=== PATIENT | female | born 1950 | race African-American/Black ===

== ENCOUNTER 2018-03-20 06:54 | Inpatient (IN) | payer MEDICAID, OTHER ==
[2018-03-20] MEDS ORDERED: PROPOFOL 200 MG/20 ML VIAL IV ONE (08:48)
[2018-03-20] MEDS ORDERED: HYDROmorphone HCL/PF 2 MG/ML VIAL ONE ×2 (08:48)
[2018-03-20] MEDS ORDERED: LORazepam 2 MG/ML VIAL ONE (08:48)
[2018-03-20] MEDS ORDERED: ePHEDrine SULFATE 50 MG/1 ML IVP ONE (08:48)
[2018-03-20] MEDS ORDERED: ROCURONIUM BROMIDE 10 MG/ML 5ML VIAL ONE (08:48)
[2018-03-20] MEDS ORDERED: LIDOCAINE HCL 2% PF 100MG/5ML VIAL IJ ONE (08:48)
[2018-03-20] MEDS ORDERED: DEXAMETHASONE SOD PHOS 4 MG/ML VIAL ONE (08:48)
[2018-03-20] MEDS ORDERED: fentaNYL CITRATE/PF 100 MCG/ 2ML AMP ONE (08:48)
[2018-03-20] MEDS ORDERED: FENTANYL 250MCG/5ML VIAL ONE (08:48)
[2018-03-20] MEDS ORDERED: LACTATED RINGERS 1,000 ML IV.SOLN IV ONE ×2 (08:48)
[2018-03-20] MEDS ORDERED: ceFAZolin SODIUM 1 GM VIAL ONE (08:48)
[2018-03-20] MEDS ORDERED: ONDANSETRON HCL/PF 4 MG/ 2ML VIAL ONE (08:48)
[2018-03-20] MEDS ORDERED: MIDAZOLAM HCL 2 MG/2 ML VIAL ONE (08:48)
[2018-03-20] MEDS ORDERED: PHENYLEPHRINE HCL 10 MG/1 ML ONE (08:48)
[2018-03-20] MEDS ORDERED: BACITRACIN 50,000 UNIT VIAL ONE (08:48)
[2018-03-20] MEDS ORDERED: SEVOFLURANE 250 ML LIQUID IH ONE (08:48)
[2018-03-20] MEDS ORDERED: THROMBIN (RECOMBINANT) 20,000 UNIT VIAL TP ONE (08:48)
[2018-03-20] MEDS ORDERED: DIAZEPAM 5 MG TABLET PO PRN (13:07)
[2018-03-20] MEDS ORDERED: diphenhydrAMINE HCL 50 MG/ML VIAL IVP PRN (13:07)
[2018-03-20] MEDS ORDERED: HYDROmorphone HCL 2 MG TABLET PO PRN (13:07)
[2018-03-20] MEDS ORDERED: ONDANSETRON HCL/PF 4 MG/ 2ML VIAL IVP PRN (13:07)
[2018-03-20] MEDS ORDERED: fentaNYL CITRATE/PF 100 MCG/ 2ML AMP IVP PRN ×2 (13:07)
[2018-03-20] MEDS ORDERED: PROMETHAZINE HCL 25 MG in 0.9 % SODIUM CHLORIDE 50 ML IV PRN (13:07)
[2018-03-20] MEDS ORDERED: MORPHINE SULFATE 4 MG/ML PREFILLED SYR IVP PRN (13:07)
[2018-03-20] MEDS ORDERED: LEVALBUTEROL HCL 1.25 MG/3 ML AMPUL.NEB NEB PRN (13:07)
[2018-03-20] MEDS ORDERED: ACETAMINOPHEN 500 MG TABLET PO PRN (13:07)
[2018-03-20] MEDS ORDERED: oxyCODONE HCL 5 MG TABLET PO PRN (13:07)
[2018-03-20] MEDS ORDERED: oxyCODONE/ACETAMINOPHEN 5/325 TABLET PO PRN (13:07)
[2018-03-20] MEDS ORDERED: diphenhydrAMINE HCL 25 MG TABLET PO PRN (13:07)
[2018-03-20] MEDS ORDERED: 0.9 % SODIUM CHLORIDE 1,000 ML IV SCH (13:15)
[2018-03-20] MEDS ORDERED: IPRATROPIUM/ALBUTEROL SULFATE 3 ML AMPUL.NEB NEB PRN (13:35)
--- NOTE | 2018-03-20 14:14 | History and Physical Report ---
History of Present Illnes - History of Present Illness Reason for Visit: Cervical Disc Replacement of C3-C4 and C4-C5 History of Present Illness: Patient is a 67-year-old woman who has a chronic history of neck and back pain. She has had injections to the SI joints which provided 50% pain relief. She has also received physical therapy in the past. It was decided by patient and surgeon to proceed with surgical intervention and Cervical Disc Replacement of C3-4 and C4-5 was completed today. Procedure went well- patient was said to be very anxious in PACU and received ativan 1 mg and helped patient to relax. Patient will me admitted to assist with pain control, IVF until patient is able to eat and drink, neurovascular checks, and will involve PT to assist patient with getting up and walking. - Past Medical History Cardiac: HTN. 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 denies: CVA, TIA Gastrointestinal: GERD (occasionally). denies: Irritable bowel disease Heme/Onc: Anemia NOS, Cancer (hx of breast cancer) Hepatobiliary: denies: Hep A/B/C Psych: denies: Anxiety, Depression Musculoskeletal: Chronic low back pain, Other (chronic neck pain) Rheumatologic: denies: Rheumatoid arthritis Infectious Disease: Other (hx of measles). denies: HIV ENT: denies: Sinusitis Renal/: denies: Acute renal failure Endocrine: obesity. denies: Diabetes, Hypothyroidism Dermatology: denies: Cellulitis - Past Surgical History Past Surgical History: Breast Biopsy, Tubal Ligation, Other (breast surgeries x 5) - Past Social History Smoke: 1 pack per day, Quit (3 months ago) Alcohol: None Drugs: Marijuana (daily) Lives: With Family Domestic Violence: Negative - Health Maintenance Health Maintenance: Mammogram. denies: Influenza Vaccine, Pneumococcal Vaccine Influenza Vaccine: No, Patient Refused Pneumonia Vaccine: No (pt refused) Resuscitation Status: Full Code - Unable to Obtain History Unable to Obtain: No Review of Systems - Review of Systems Constitutional: negative: Fever, Chills Eyes: negative: vision change, redness ENT: negative: Ear Pain, Throat Pain Respiratory: negative: Cough, Shortness of Breath Cardiovascular: negative: Chest Pain, Palpitations Gastrointestinal: negative: Nausea, Vomiting Genitourinary: negative: Dysuria Musculoskeletal: Neck Pain (c/o discomfort to neck s/p surgery (c-collar on)) Skin: negative: Rash Neurological: negative: Incoordination - Medications/Allergies Allergies/Adverse Reactions: Allergies Allergy/AdvReac Type Severity Reaction Status Date / Time No Known Allergies Allergy Unverified 03/20/18 13:26 Home Medications: Home Medications Aspirin [Aspirin EC] 81 mg PO DAILY 03/20/18 Ipratropium/Albuterol Sulfate [Combivent Respimat] 2 puff IH BID 03/20/18 Lidocaine [Lidocaine Pain Relief] 1 each TP DAILY 03/20/18 Lisinopril [Prinivil] 20 mg PO DAILY 03/20/18 Naproxen [Naprosyn] 500 mg PO BID 03/20/18 Tramadol HCl [Ultram] 50 mg PO Q6H PRN 03/20/18 Triamcinolone Acetonide 0.1% [Kenalog] 1 appl TP BID 03/20/18 amLODIPine BESYLATE [Norvasc] 10 mg PO 0900 03/20/18 Current Inpatient Medications: Current Inpatient Medications Acetaminophen (Tylenol Extra Strength) 500 mg PO Q4 PRN PRN Reason: for mild pain 1-4/fever Albuterol/Ipratropium (Duoneb) 3 ml NEB Q4 PRN PRN Reason: Wheezing/Shortness of breath Amlodipine Besylate (Norvasc) 10 mg PO DAILY LUIS Diazepam (Valium) 5 mg PO Q8H PRN PRN Reason: Anxiety/muscle spasm Stop: 03/21/18 13:06 Diphenhydramine HCl (Benadryl) 25 mg IVP Q6H PRN PRN Reason: Sleeping and Itching Stop: 03/21/18 13:06 Diphenhydramine HCl (Benadryl) 25 mg PO Q4 PRN PRN Reason: Itching or Pruritis Stop: 03/21/18 13:06 Fentanyl Citrate (Duragesic) 50 mcg IVP Q2H PRN PRN Reason: Moderate pain 5-7 Stop: 03/21/18 13:06 Fentanyl Citrate (Duragesic) 100 mcg IVP Q2H PRN PRN Reason: For Severe Pain 8-10 Stop: 03/21/18 13:06 Heparin Sodium (Porcine) (Heparin) 5,000 unit SQ Q12 LUIS Hydromorphone HCl (Dilaudid) 4 mg PO Q4H PRN PRN Reason: Severe Pain 8-10 Stop: 03/21/18 13:06 Sodium Chloride (Normal Saline) 1,000 mls @ 75 mls/hr IV Q13H LUIS Promethazine HCl 25 mg/ Sodium (Chloride) 51 mls @ 200 mls/hr IV Q6 PRN PRN Reason: Nausea / Vomiting Stop: 03/24/18 13:06 Ketorolac Tromethamine (Toradol) 15 mg IVP Q6 PRN PRN Reason: For Mild Pain 1-4 Stop: 03/21/18 13:06 Levalbuterol HCl (Xopenex) 1.25 mg NEB Q4 PRN PRN Reason: SOA, Dyspnea, or Wheezing Stop: 03/24/18 13:06 Lisinopril (Prinivil) 5 mg PO DAILY LUIS Morphine Sulfate () 4 mg IVP Q2 PRN PRN Reason: For Severe Pain 8-10 Stop: 03/21/18 13:06 Ondansetron HCl (Zofran 4 Mg/2 Ml) 4 mg IVP Q6H PRN PRN Reason: Nausea / Vomiting Stop: 03/24/18 13:06 Oxycodone HCl (Percolone) 10 mg PO Q4 PRN PRN Reason: For Moderate Pain 5-7 Stop: 03/21/18 13:06 Oxycodone/Acetaminophen (Percocet 5-325 Mg Tablet) 2 each PO Q4 PRN PRN Reason: Moderate pain 5-7 Stop: 03/21/18 13:06 Exam - Exam Vital Signs: Vital Signs (72 hours) 03/20/18 03/20/18 13:06 13:46 Temperature 97.4 F L 97.4 F L Pulse Rate [ 104 H Right] Respiratory 18 Rate Blood Pressure 137/79 [Right Arm] O2 Sat by Pulse 94 94 Oximetry General: Alert, Oriented to Person, Oriented to Place, Cooperative, Moderate distress (Still drowsy from Ativan- but arouses easily) HEENT: Atraumatic, PERRLA, Mouth Mucous membr. moist/[place], Nose Mucous membr. moist/[place] Neck: Other (patient has on soft c-collar for support and protection). No: Stridor, Normal Range of Motion Lungs: Clear to auscultation, Normal air movement. No: Respiratory Distress, Wheezes Cardiovascular: Regular rate, Normal S1, Normal S2 Abdomen: Normal bowel sounds, Soft, No tenderness Integumentary: [place], Warm, Dry Extremities: No edema, Normal pulses, No tenderness/swelling Neurological: Strength Equal Bilat (equal bilaterally slightly weak), Sensation intact. No: Normal gait (ambulated to the bathroom with assist) Psych/Mental Status: Other (Patient still drowsy from Ativan- easily arousable) Assessment/Plan - Assessment/Plan (1) S/P cervical disc replacement Status: Acute Current Visit: Yes Assessment: S/p Cervical disc replacement of C3-4 and C4-5, soft c-collar on for support and protection, neurovasculars intact Plan: Plan is for IV pain control and eventually transition to oral pain meds, IVF for hydration until patient tolerates diet, have patient up and ambulating & SCDs while in bed to prevent DVTs along with heparin, and Incentive spirometer to prevent respiratory illness. (2) Asthma Status: Acute Current Visit: Yes Qualifiers: Asthma severity: mild Asthma persistence: intermittent Asthma complication type: uncomplicated Qualified Code(s): J45.20 - Mild intermittent asthma, uncomplicated Assessment: Lungs are clear- will continue to monitor pulse ox Plan: Will use duoneb nebulizer as needed, will implement incentive spirometer, and monitor pulse ox (3) Hypertension Status: Acute Current Visit: Yes Qualifiers: Hypertension type: essential hypertension Qualified Code(s): I10 - Essential (primary) hypertension Plan: Stable with home medication- will continue (4) Degenerative disc disease, lumbar Status: Acute Current Visit: Yes Plan: Pain medication for cervical surgery should help with lumbar discomfort (5) Cervical stenosis of spine Status: Acute Current Visit: Yes Plan: S/P cervical disc replacement of C3-4 and C4-5 VTE Assessment - RISK FACTOR SCORE VTE RISK FACTOR SCORES: AGE OVER 60 YEARS, MAJOR SURGERY/ANESTHESIA TIME > 1 HOUR (Heparin 5000 units subq q 12hours, frequent ambulation, and sCDS)
[2018-03-20] MEDS: KETOROLAC TROMETHAMINE 30 MG/1ML VIAL IVP PRN ×2 (15:28→23:12)
[2018-03-20 16:17] VITALS: BMI 19.3
[2018-03-20] MEDS: HEPARIN SODIUM 5000 UNIT/1 ML SQ SCH (21:40)
[2018-03-21 07:41] LABS: eGFR (Non-African) > 60
[2018-03-21 07:49] LABS: BASOPHILS % 0.5 (0.0-1.5); EOSINOPHILS % 0.7 % (0.0-6.8); MONOCYTES % 8.6 % (0.0-11.0)
[2018-03-21 07:50] LABS: NEUTROPHILS # 10.7 # k/uL (1.4-7.7)
[2018-03-21] MEDS: HEPARIN SODIUM 5000 UNIT/1 ML SQ SCH (08:41)
[2018-03-21] MEDS ORDERED: amLODIPine BESYLATE 5 MG TABLET PO SCH (09:00)
[2018-03-21] MEDS ORDERED: LISINOPRIL 5 MG TABLET PO SCH (09:00)
--- NOTE | 2018-03-21 09:09 | Discharge Summary ---
Discharge Summary - Discharge Sumary History of Present Illness: Patient is a 67-year-old woman who has a chronic history of neck and back pain. She has had injections to the SI joints which provided 50% pain relief. She has also received physical therapy in the past. It was decided by patient and surgeon to proceed with surgical intervention and Cervical Disc Replacement of C3-4 and C4-5 was completed today. Procedure went well- patient was said to be very anxious in PACU and received ativan 1 mg and helped patient to relax. Patient will me admitted to assist with pain control, IVF until patient is able to eat and drink, neurovascular checks, and will involve PT to assist patient with getting up and walking. Condition at Discharge: Stable Home Medications: Ambulatory Orders Medication Instructions Recorded Aspirin [Aspirin EC] 81 mg PO DAILY 03/20/18 Ipratropium/Albuterol Sulfate 2 puff IH BID 03/20/18 [Combivent Respimat] Lidocaine [Lidocaine Pain Relief] 1 each TP DAILY 03/20/18 Lisinopril [Prinivil] 20 mg PO DAILY 03/20/18 Naproxen [Naprosyn] 500 mg PO BID 03/20/18 Tramadol HCl [Ultram] 50 mg PO Q6H PRN 03/20/18 Triamcinolone Acetonide 0.1% 1 appl TP BID 03/20/18 [Kenalog] amLODIPine BESYLATE [Norvasc] 10 mg PO 0900 03/20/18 Oxycodone HCl/Acetaminophen 1 - 2 tab PO Q4H PRN #84 tablet 03/21/18 [Percocet 7.5/325] Consultations this Visit: Other (Keep follow up appointment s/p surgery) Procedures this Visit: Other (S/P Cervical Total Disc Replacement) Allergies/Adverse Reactions: Allergies Allergy/AdvReac Type Severity Reaction Status Date / Time No Known Allergies Allergy Unverified 03/20/18 13:26 Patient Problems: Current Active Problems Problem Status Onset Asthma Acute Cervical stenosis of spine Acute Degenerative disc disease, lumbar Acute Hypertension Acute S/P cervical disc replacement Acute Discharge Summary: Patient was admitted for Cervical Total Disc Replacement (2 levels)- she did very well throughout the night. Staff state that patient has been up in chair, ambulating in the hallway, and using incentive spirometer. She has had minimal discomfort. Patient was up this morning in chair eating breakfast independently and tolerating regular diet. She is insistent on going home today. She states that she has plenty of help at home- she has been walking independently in the hallway, pain is very minimal to the neck (sore)- c collar is on, she denies any nausea or vomiting. Neurovasculars are intact of all 4 extremities. Patient will be discharged to home with prescription for percocet for severe pain- pt states that she will use her Tramadol first. She was instructed to wear c collar when she is outside of the home. Patient will be given discharge information for Cervical Total Disc Replacement. Dr. Thompson has been in to see patient this morning- patient is very pleased after surgery- she has no more pain, no radiating pain, no numbness or tingling to extremities. Hospital Course: Patient has been up walking independently. Tolerating regular diet with no nausea or vomiting. Has not required pain medication in over 8 hours - Final Diagnosis (1) S/P cervical disc replacement Problems: Incision is without redness- c collar is on and patient educated on wearing it when she leaves the home Right or Left: Right (2) Asthma Problems: Stable on home medications Right or Left: Right (3) Hypertension Problems: Stable on home medications Right or Left: Right (4) Degenerative disc disease, lumbar Problems: Stable on home medications Right or Left: Right (5) Cervical stenosis of spine Problems: S/P cervical total disc replacement Right or Left: Right
[2018-03-21 10:22] VITALS: BP 158/78
== END 2018-03-21 10:30 | disposition home or self-care (01) | DRG 518 ==
LOC: OPSURG 06:54 → OBSVTOIN 12:57 → INTOOBSV 12:57 → SOUTH 12:57
PROVIDERS: ADMIT Nurse Practitioner Family; ATTEND Nurse Practitioner Family
DX: M48.02 Spinal stenosis, cervical region (principal); M50.21 Other cervical disc displacement, high cervical region; M50.221 Other cervical disc displacement at C4-C5 level; J45.20 Mild intermittent asthma, uncomplicated
CPT/HCPCS: 22856; 22858; 80048; 85025; 99231; 99238; J0690; J1100; J1170; J1644; J1885; J2001; J2060; J2250; J2370; J2405; J2704; J3010; A4550; C1889; G0378; J3490; J7030; J7120; L0120

== ENCOUNTER 2018-05-23 05:08 | Day surgery (SDC) | payer MEDICARE, OTHER ==
[2018-05-23] MEDS ORDERED: LEVALBUTEROL NEB 1.25 MG/3 ML VIAL.NEB IH ONE (05:20)
[2018-05-23] MEDS ORDERED: LACTATED RINGERS 1,000 ML IV ONE (05:20)
[2018-05-23] MEDS ORDERED: FAMOTIDINE 20 MG/2 ML VIAL ONE ×2 (05:21→08:48)
[2018-05-23] MEDS ORDERED: ONDANSETRON HCL/PF 4 MG/ 2ML VIAL ONE (08:48)
[2018-05-23] MEDS ORDERED: LACTATED RINGERS 1,000 ML IV.SOLN IV ONE (08:48)
[2018-05-23] MEDS ORDERED: MIDAZOLAM HCL 2 MG/2 ML VIAL ONE (08:48)
[2018-05-23] MEDS ORDERED: VASOPRESSIN 20 UNIT/1 ML ONE (08:48)
[2018-05-23] MEDS ORDERED: HYDROmorphone HCL/PF 2 MG/ML VIAL ONE (08:48)
[2018-05-23] MEDS ORDERED: LIDOCAINE HCL 2% PF 100MG/5ML VIAL IJ ONE (08:48)
[2018-05-23] MEDS ORDERED: DEXAMETHASONE SODIUM PHOSPHATE 10 MG/ML VIAL ONE (08:48)
[2018-05-23] MEDS ORDERED: PROPOFOL 200 MG/20 ML VIAL IV ONE (08:48)
[2018-05-23] MEDS ORDERED: ROCURONIUM BROMIDE 10 MG/ML 5ML VIAL ONE (08:48)
[2018-05-23] MEDS ORDERED: THROMBIN (BOVINE) 20,000 UNIT VIAL TP ONE (08:48)
[2018-05-23] MEDS ORDERED: 0.9 % SODIUM CHLORIDE 100 ML IV.SOLN IV ONE (08:48)
[2018-05-23] MEDS ORDERED: PHENYLEPHRINE HCL 10 MG/1 ML ONE (08:48)
[2018-05-23] MEDS ORDERED: NORMAL SALINE 1,000 ML IV.SOLN IV ONE (08:48)
[2018-05-23] MEDS ORDERED: SEVOFLURANE 250 ML LIQUID IH ONE (08:48)
[2018-05-23] MEDS ORDERED: SUGAMMADEX SODIUM 200 MG/2 ML VIAL IV ONE (08:48)
[2018-05-23] MEDS ORDERED: BUPIV. HCL 0.25% (2.5MG/ML)/EPI. (1:200,000) PF 30 ML VIAL IJ ONE (08:48)
[2018-05-23] MEDS ORDERED: GLYCOPYRROLATE 0.2 MG/1 ML 1 ML ONE (08:48)
[2018-05-23] MEDS ORDERED: ceFAZolin SODIUM 1 GM VIAL ONE (08:48)
--- NOTE | 2018-05-23 13:49 | Operative Note ---
OPERATIVE REPORT PATIENT NAME: CINTHIA VAZQUEZ DATE OF : 1950 MR#: PROCEDURE DATE: 05/23/2018 PREOPERATIVE DIAGNOSIS: Right-sided herniated nucleus pulposus, L4-5, with bilateral foraminal stenosis. POSTOPERATIVE DIAGNOSIS: Right-sided herniated nucleus pulposus, L4-5, with bilateral foraminal stenosis. PROCEDURES PERFORMED: 1. Right side laminotomy, L4, with bilateral decompression, bilateral foraminotomies, and discectomy. 2. Intraoperative fluoroscopy and interpretation for needle placement. SURGEON: King Saucedo Jr., M.D. RADIO TIME BUYER: None. ANESTHESIA: General. COMPLICATIONS: None. CONDITION FOLLOWING THE PROCEDURE: Good. OPERATIVE FINDINGS: This patient is suffering with primarily right leg pain due to bilateral foraminal stenosis and herniated nucleus pulposus at L4-5. A right-sided approach was utilized, discectomy conducted on the right side, bilateral foraminotomies, and decompression was performed until Casiano probe passage was assuring adequate spinal reserve capacity in both neural foramina. DESCRIPTION OF PROCEDURE: The patient is taken to the operating room and general anesthetic induced. The patient was placed in the prone position and the back was thoroughly scrubbed, sterilely prepped and draped. C-arm fluoroscopy was brought into position to identify the surgical level. A Tuohy needle was then placed adjacent to the paraspinous process of the lumbar spine and driven down to the base of the posterior spinous process. X-rays were taken to confirm vertical direction of the needle and identification of the L4-5 level for surgical care. When the Touhy needle was found to be placed and replaced in the ideal position, skin cruz were made and the skin was infiltrated with 0.5% Marcaine with epinephrine. A 2-cm transverse incision was then made adjacent to the affected side of the lumbar spine at the affected level. The scalpel blade was then inserted through the subcutaneous tissue and, in a vertical direction, the lumbar fascia was incised through the transverse incision of the skin. Next, the smallest obturator for the cylindrical retractor set was inserted into the skin and through the division of the lumbar fascia down to the palpable inferior aspect of the lamina of the affected level. This was followed by progressive dilators and ended with a cylindrical retractor being placed down to the affected lamina. Its accurate placement was again confirmed radiographically by AP and lateral x-rays intraoperatively. The dilators were then removed, leaving the cylindrical retractor in place at the desired surgical level. High power magnification was then brought into the surgical field and utilized through the cylindrical retractor for the following microsurgical technique application and dissection. The thin muscular cuff remaining over the lamina was removed with a combination of pituitary rongeurs and electrocautery to control hemostasis. Typically, both monopolar and bipolar electrocautery are used for this purpose. The inferior aspect of the lamina then received a Romney retractor and C-arm fluoroscopy was again brought into position to confirm medial placement and visualization of the lamina as well as to reconfirm the affected level is accurately identified for the surgical procedure to follow. Once this was confirmed, a high-speed arnold was inserted and the posterior aspect of the lamina and base of the posterior spinous process began to be thinned down until just passing through the anterior aspect of the lamina, thus both visualizing and palpating the thick ligamentum flavum over the dural sac. There was deemed to be adequate exposure over the area affected for surgery and resection with the high-speed arnold continued until well above the superior margin of the disc space. A combination of 2- and 3-mm Kerrison rongeurs were then used to remove the remaining thin wisp of anterior lamina and portions of the posterior spinous process until there was wide exposure in the desired area for surgical care. The ligamentum flavum was then freed from the superior margin which was identified by the initiation of bleeding, marking the origin of the ligamentum flavum superiorly. The ligamentum flavum was from the lamina at this point and reflected inferiorly. Kerrison rongeurs were then used to resect all of the ligamentum flavum, exposing the dural sac. Using the Kerrison rongeurs, the foraminotomy was performed on the surgical side until there was adequate room as demonstrated by passage of the Casiano probe into the neural foramen. This required a resection of bony spicules, osteophytes, and hypertrophic ligamentum flavum within the spinal canal and neural foramen to confirm adequate relief of the exiting nerve root as well as the nerve root passing by the axilla, destined for next level emergence. A combination of bipolar electrocautery, Gelfoam and thrombin were used to control hemostasis as needed. Attention was directed in the opposite direction toward the opposite side of the spinal canal and ligamentum flavum was resected from the anterior aspect of the lamina on the opposite side to provide additional central decompression. At this point, thrombin was placed directly on the dura and allowed to remain for one minute, and then the excess removed. This was followed by a small piece of Gelfoam which covered the laminotomy site, which had been soaked in thrombin. The cylindrical tract was then gradually removed and any area of hemorrhage received electrocautery treatment. The lumbar fascia was then approximated with 0-Vicryl and a subcuticular closure of the subcutaneous and skin was then approximated with Steri-Strips. 15 cc of 0.5% Marcaine with epinephrine was then instilled into the muscular tissue and subcutaneous layer at all four quadrants of the incision to aid in postoperative analgesia. A dressing was applied and the patient was then taken to the recovery room in good condition. It is noteworthy that, during the procedure, the annulus was penetrated with a Steinmann pin and a combination of Arian curettes and pituitary rongeurs were used to affect a discectomy and removal of any posterior osteophytes that needed to be addressed in the area of the surgical procedure. During decompression posteriorly, microsurgical high speed arnold use continued in the contralateral direction, removing sufficient posterior spinous process base and anterior lamina on the contralateral side to leave a cuff of ligamentum flavum covering the dura. Then all ligamentum flavum was resected until the neural foramen on the opposite side was also visualized. Kerrison rongeurs under direct visualization and protecting the dura with cottonoids was performed to allow direct visualization and decompression of the opposite neural foramen, again until a Casiano probe would pass adequately and completely out the neural foramen without significant impingement. KING SAUCEDO JR., M.D. ISAEL/morro KYLEIGH
== END 2018-05-23 13:10 | disposition home or self-care (01) ==
LOC: OPSURG 05:08
PROVIDERS: ATTEND Orthopaedic Surgery
DX: M48.061 Spinal stenosis, lumbar region without neurogenic claudication (principal); M51.26 Other intervertebral disc displacement, lumbar region
CPT/HCPCS: 63030; J0690; J1170; J2001; J2250; J2370; J2405; J2704; J3490; J7030; J7120; J7614